=== PATIENT | male | born 1940 ===

== ENCOUNTER 2016-05-06 10:05 | Outpatient (CLI) | payer MEDICARE ==
[2016-05-06 11:33] LABS: ALT (SGPT) 39 U/L (0-55); AST (SGOT) 32 U/L (5-34); Alkaline Phosphatase 35 U/L (40-150); Bilirubin, Direct 0.3 mg/dL (0.1-0.3); Bilirubin, Total 0.7 mg/dL (0.2-1.2); LDL Cholesterol, Calculated 48 mg/dL; Protein, Total 6.8 g/dL (5.8-8.1)
== END 2016-05-06 10:06 | disposition home or self-care (01) ==
LOC: HPCALD 10:05
PROVIDERS: ATTEND Family Medicine
DX: E78.00 Pure hypercholesterolemia, unspecified (principal)
CPT/HCPCS: 36415; 80061; 80076